=== PATIENT | male | born 1955 | race Caucasian/White ===

== ENCOUNTER 2017-02-04 12:39 | Outpatient (CLI) | payer BC, OTHER ==
--- NOTE | 2017-02-04 17:20 | ULT ---
SCROTAL ULTRASOUND INCLUDING COLOR AND SPECTRAL DOPPLER IMAGIN02/04/17 HISTORY: Left scrotal/testicular pain in a 61-year-old male. Right testis measures 4.3 x 4.3 x 2.3 cm. The left testis measures 4.8 x 3.5 x 2.8 cm. There is a 0.3 cm diameter hypoechoic focus in the left epididymis probably a small complex epididymal cyst. Very s mall spermatocele. No intratesticular mass. Vascular flow is documented to both testis. No evidence f or testicular torsion. IMPRESSION: Possible small complex left epididymal cyst. No intratesticular mass, testicular torsion, hydrocele, or other acute process. POS: [facility]
== END 2017-02-04 12:40 | disposition home or self-care (01) ==
LOC: ULT 12:39
PROVIDERS: ATTEND Urology
DX: N50.819 Testicular pain, unspecified (principal)
CPT/HCPCS: 76870; 93976

== ENCOUNTER 2017-08-26 10:00 | Outpatient (CLI) | payer BC, OTHER ==
[2017-08-26 11:43] LABS: Hemoglobin 14.7 g/dL (14.0-18.0); Mean Corpuscular HGB CONC 32.5 g/dL (32.0-36.0); Mean Corpuscular Volume 89.1 fL (78.0-98.0); Mean Platelet Volume 9.6 fL (7.4-10.4); Platelet Count 175 thou/uL (130-400); Red Blood Cell (RBC) Count 5.07 mill/uL (4.70-6.10); White Blood Cell (WBC) Count 6.8 thou/uL (4.8-10.8)
[2017-08-26 12:01] LABS: ALT (SGPT) 39 U/L (8-55); AST (SGOT) 29 U/L (5-34); Albumin 4.4 g/dL (3.5-5.0); Alkaline Phosphatase 78 U/L (40-150); Anion Gap 13 mmol/L (10-20); BUN (Urea Nitrogen) 20 mg/dL (8.4-25.7); Bilirubin, Total 0.5 mg/dL (0.2-1.2); Calc. Creatinine Clearance 0 mL/min (70-130); Calcium 9.3 mg/dL (7.8-10.44); Carbon Dioxide 24 mmol/L (22-29); Chloride 106 mmol/L (98-107); Estimated GFR-MDRD Greater than 90; Globulin 2.6 g/dL (2.4-3.5); Glucose 112 mg/dL (70-105); Sodium 139 mmol/L (136-145)
[2017-08-26 12:02] LABS: PTT 25.5 SEC (22.9-36.1); Prothrombin Time 12.8 SEC (12.0-14.7)
== END 2017-08-26 10:01 | disposition home or self-care (01) ==
LOC: LABBT 10:00
PROVIDERS: ATTEND Internal Medicine Cardiovascular Disease
DX: Z01.818 Encounter for other preprocedural examination (principal); R94.39 Abnormal result of other cardiovascular function study
CPT/HCPCS: 80053; 85027; 85610; 85730; 93005; 93010

== ENCOUNTER 2017-08-28 10:46 | Observation (INO) | payer BC, OTHER ==
[2017-08-28 11:05] LABS: #Eosinphils 0.2 thou/uL (0.0-0.7); #Lymphocytes 1.6 thou/uL (1.20-3.40); #Monocytes 0.4 thou/uL (0.11-0.59); %Basophils 0.3 % (0.0-1.0); %Eosinophils 2.5 % (0.0-10.0); %Lymphocytes 26.3 % (21.0-51.0); %Monocytes 6.4 % (0.0-10.0); %Neutrophils 64.5 % (42.0-75.0); Hemoglobin 14.8 g/dL (14.0-18.0); Mean Corpuscular HGB CONC 34.4 g/dL (32.0-36.0); Mean Corpuscular Hemoglobin 30.7 pg (27.0-31.0); Mean Corpuscular Volume 89.1 fL (78.0-98.0); Mean Platelet Volume 9.2 fL (7.4-10.4); Platelet Count 164 thou/uL (130-400); Red Blood Cell (RBC) Count 4.81 mill/uL (4.70-6.10); White Blood Cell (WBC) Count 6.1 thou/uL (4.8-10.8)
[2017-08-28 11:26] LABS: ALT (SGPT) 34 U/L (8-55); AST (SGOT) 26 U/L (5-34); Albumin 4.3 g/dL (3.5-5.0); Alkaline Phosphatase 77 U/L (40-150); Anion Gap 13 mmol/L (10-20); BUN (Urea Nitrogen) 17 mg/dL (8.4-25.7); Bilirubin, Total 0.5 mg/dL (0.2-1.2); CK (CPK) 163 U/L (30-200); Calc. Creatinine Clearance 0 mL/min (70-130); Calcium 9.4 mg/dL (7.8-10.44); Carbon Dioxide 24 mmol/L (22-29); Chloride 106 mmol/L (98-107); Estimated GFR-MDRD Greater than 90; Globulin 2.7 g/dL (2.4-3.5); Glucose 195 mg/dL (70-105); Potassium 4.3 mmol/L (3.5-5.1); Sodium 139 mmol/L (136-145)
[2017-08-28 11:30] LABS: CKMB 2.2 ng/mL (0-6.6); Troponin I Less than 0.010 ng/mL (< 0.028)
--- NOTE | 2017-08-28 11:46 | RAD ---
FRONTAL VIEW CHEST: COMPARISON: 10/24/16. INDICATION: Chest pain. FINDINGS: Cardiac silhouette is enlarged. There is no lobar consolidation, effusion, or pneumothorax. Osseous degenerative change is present. There is extrinsic limiting visualization. IMPRESSION: 1. Prominent cardiac silhouette. Correlate clinically. 2. No lobar consolidation. POS: [facility]
[2017-08-28] MEDS ORDERED: Enoxaparin Sodium 80 MG/0.8 ML SYRINGE ONE (12:40)
[2017-08-28] MEDS ORDERED: Enoxaparin Sodium 40 MG/0.4 ML SYRINGE ONE (12:40)
--- NOTE | 2017-08-28 13:29 | HP ---
PRIMARY CARE PHYSICIAN: Dr. Abe rodrigues. PRIMARY COMMUNICATIONS PLANNER: Dr. Mitchell. REASON FOR ADMISSION: Chest pain. HISTORY OF PRESENT ILLNESS: A 62-year-old male who has diabetes mellitus type 2, dyslipidemia, parox ysmal atrial fibrillation who presented to emergency room for evaluation of chest pain. Patient repo rts that for last 2-3 weeks, he is experiencing substernal chest discomfort on the surface. He denie s any deep chest pain. He describes as a dull pain. There is no specific aggravating or relieving f actor. The patient took Aleve, but that did not significantly reduce his pain. The patient also too k full aspirin which did not reduce his pain. He denies any acid reflux. He denies any pleurisy. H e denies any relation of chest discomfort with food, respiration or activity. Patient saw primary ca rdiologist, Dr. Mitchell and as this patient was having recurrent symptoms that is why patient was schedu led as an outpatient basis stress test which was done last Tuesday and it was abnormal and that is why patient is planned for cardiac catheterization on coming Tuesday. Patient's symptoms started again this morning and that is why patient's advised him to go to the ER for evaluation. In the emergency room, his routine evaluation with echocardiogram, blood test, c hest x-ray was unremarkable. Patient is being admitted to observation for rule out ACS. Patient's reports that she noticed that intermittently he was having diaphoresis around the neck area without any associated chest pain. REVIEW OF SYSTEMS: The following complete review of systems was negative, unless otherwise mentioned in the HPI or below: Constitutional: Weight loss or gain, ability to conduct usual activities. Sk in: Rash, itching. Eyes: Double vision, pain. ENT/Mouth: Nose bleeding, neck stiffness, pain, te nderness. Cardiovascular: Palpitations, dyspnea on exertion, orthopnea. Respiratory: Shortness of breath, wheezing, cough, hemoptysis, fever or night sweats. Gastrointestinal: Poor appetite, abdom inal pain, heartburn, nausea, vomiting, constipation, or diarrhea. Genitourinary: Urgency, frequenc y, dysuria, nocturia. Musculoskeletal: Pain, swelling. Neurologic/Psychiatric: Anxiety, depressio n. Allergy/Immunologic: Skin rash, bleeding tendency. Please see my HPI for pertinent positive and negative. All other review of systems reviewed and negative except as mentioned in the HPI. PAST MEDICAL HISTORY: Nephrolithiasis, diabetes type 2, paroxysmal atrial fibrillation, dyslipidemia . PAST SURGICAL HISTORY: Lithotripsy, tonsillectomy, ureteral stent placement. PAST PSYCHIATRIC HISTORY: Anxiety. SOCIAL HISTORY: Patient is . He drinks alcohol occasionally. He denies any smoking. He den ies any other illicit drug abuse. FAMILY HISTORY: Unable to relate because patient is adopted and that is why he does not know any fam janis history. ALLERGIES: SULFA DRUGS. CURRENT HOME MEDICATIONS: Metformin 1000 mg twice daily, flecainide 100 mg twice daily, metoprolol 5 0 mg daily, pravastatin 40 mg p.o. daily, aspirin 81 mg p.o. daily. EMERGENCY ROOM COURSE: Patient is given Lovenox 120 mg subQ one time dose. PHYSICAL EXAMINATION: VITAL SIGNS: On arrival, blood pressure 116/77, pulse 82, respiratory rate 18, temperature 98.4, sat uration 94% on room air, weight 120.2 kilograms. GENERAL: Patient is currently alert, awake, no obvious acute distress. HEENT: Head: Normocephalic, atraumatic. Eyes: Pupils are round, reactive to light. Extraocular m uscles are intact. ENT: Oropharynx within normal limits. Moist mucous membranes. No oral lesion, no pharyngeal erythema, no exudate. NECK: Supple, no JVD, no thyromegaly, no carotid bruit. LUNGS: Clear to auscultation without any rhonchi or rales. CARDIAC: S1, S2 regular. No murmur, no gallop, no rub. ABDOMEN: Soft, bowel sounds present, obesity present. No peritoneal sign, no guarding, no rigidity, no rebound. BACK: Unremarkable, no CVA tenderness. EXTREMITIES: Upper extremity, passive movement of all joints is normal. Lower extremity: No edema. Good peripheral pulsation. SKIN: No skin rash. HEMATOLOGICAL: No lymphadenopathy. PSYCHIATRIC: Normal affect. SIGNIFICANT LABORATORY DATA: EKG showing normal sinus rhythm within normal limits. Chest x-ray base d on my review, no acute cardiopulmonary process. CBC: WBC 6.1, hemoglobin 14.8, platelet 164. BMP : Sodium 139, potassium 4.3, chloride 106, carbon dioxide 24, anion gap 13, BUN 17, creatinine 0.78, glucose 195, calcium 9.4. LFT: AST 26, ALT 34, alkaline phosphatase 77, albumin 4.3. CK 163, CK-M B 2.2, troponin I less than 0.010. BNP 21.6. ASSESSMENT AND PLAN: 1. Acute recurrent chest pain. Patient's chest pain description is atypical. Doubt this patient [place] s any associated coronary artery disease, but he had abnormal stress test as an outpatient basis and the patient is planned for cardiac catheterization on coming Tuesday. As this patient has had anot her episode of chest pain, we will keep him in the hospital for observation and will keep him n.p.o. after midnight and Cardiology will be consulted for cardiac catheterization tomorrow. We will check lipid profile for risk stratification. We will monitor on telemetry floor and meanwhile, we will con tinue the aspirin 325 mg p.o. daily, nitroglycerin on p.r.n. basis. 2. Diabetes type 2. We will continue insulin as per sliding scale protocol. As patient is planned for cardiac catheterization tomorrow, we will hold on metformin therapy after cardiac catheterization . 3. Paroxysmal atrial fibrillation. We will continue flecainide 100 mg twice daily, metoprolol 50 mg p.o. daily. 4. Dyslipidemia. Check lipid profile tomorrow and continue pravastatin 40 mg p.o. at bedtime. 5. Deep venous thrombosis prophylaxis not needed because we are expecting discharge in 24 hours. 6. Gastrointestinal prophylaxis, Pepcid 20 mg p.o. b.i.d. 7. Code status: The patient is FULL CODE. Patient's is surrogate decision maker. 8. Obesity. Dietary education given, weight loss education given. Healthy lifestyle measures discu ssed with the patient.
[2017-08-28 13:46] LABS: Troponin I Less than 0.010 ng/mL (< 0.028)
[2017-08-28 13:56] VITALS: BMI 35.2
[2017-08-28] MEDS ORDERED: Diabetic Tussin 200 MG/10 ML UDCUP PO PRN (13:57)
[2017-08-28] MEDS ORDERED: Ondansetron HCl/PF 4 MG/2 ML Vial IVP PRN (13:57)
[2017-08-28] MEDS ORDERED: Zolpidem Tartrate 5 MG TAB PO PRN (13:57)
[2017-08-28] MEDS ORDERED: Acetaminophen 325 MG TAB PO PRN (13:57)
[2017-08-28] MEDS ORDERED: Chloraseptic Spray 180 ml Bottle PO PRN (13:57)
[2017-08-28] MEDS ORDERED: Artificial Tear Sol 15 ML BOT EA EYE PRN (13:57)
[2017-08-28] MEDS ORDERED: hydrALAZINE 20 MG/ML VIAL SLOW IVP PRN (13:57)
[2017-08-28] MEDS ORDERED: Sodium Chloride 0.65% Nasal 44 ML BOT EA NARE PRN (13:57)
[2017-08-28] MEDS ORDERED: Senokot 8.6 MG TAB PO PRN (13:57)
[2017-08-28] MEDS ORDERED: Ondansetron ODT 4 MG TAB PO PRN (13:57)
[2017-08-28] MEDS ORDERED: Nitroglycerin 0.4 MG TAB (25 Tab Bottle) PO PRN (13:57)
[2017-08-28] MEDS ORDERED: Dextrose 50% Abboject 50 ML SYRINGE SLOW IVP PRN (13:57)
[2017-08-28] MEDS ORDERED: Mag-Al 1200 mg/1200 mg/30 ML UDCUP PO PRN (13:57)
[2017-08-28] MEDS ORDERED: Dextrose 5% in Water 1,000 ML IV PRN (13:57)
[2017-08-28] MEDS ORDERED: Eucerin (Mineral Oil/Petrolatum,White) 30 gm Jar TOP PRN (13:57)
[2017-08-28] MEDS ORDERED: Loperamide HCl 2 MG CAP PO PRN (13:57)
[2017-08-28] MEDS ORDERED: Milk Of Magnesia 30 ML UDCUP PO PRN (13:57)
[2017-08-28] MEDS ORDERED: HumaLOG 300 UNITS/3 ML VIAL SC PRN ×2 (13:57)
[2017-08-28] MEDS ORDERED: Loratadine 10 MG TAB PO PRN (13:57)
[2017-08-28] MEDS ORDERED: HYDROcodone/Acetaminophen 5/325 mg Tablet PO PRN (13:57)
[2017-08-28 17:51] LABS: Troponin I Less than 0.010 ng/mL (< 0.028)
[2017-08-28] MEDS: metFORMIN 500 MG TAB PO SCH (18:00)
[2017-08-28] MEDS ORDERED: Communication Order-Pharmacy FS SCH (18:15)
[2017-08-28] MEDS ORDERED: Atorvastatin Calcium 10 MG TAB PO SCH (21:00)
[2017-08-28] MEDS: Famotidine 20 MG TAB PO SCH (21:37)
[2017-08-28] MEDS: Flecainide 50 MG TAB PO SCH (21:37)
--- NOTE | 2017-08-28 22:32 | CON ---
DATE OF CONSULTATION: 08/28/2017 REASON FOR CONSULTATION: Unstable angina. HISTORY OF PRESENT ILLNESS: Mr. Abe Gibbs is a 62-year-old gentleman, patient of Dr. Ivan Mitchell. The patient recently was evaluated for chest discomfort and was found to have abnormal stress test wi th inferior ischemia on stress testing. The patient had been scheduled for cardiac catheterization t o be done this Tuesday, but had recurrent substernal chest pain at rest today. He came here to the emergency room. His discomfort was relieved with medication and he was admitted for further evaluat ion and proceeding to cardiac catheterization in view of the unstable symptoms. PAST MEDICAL HISTORY: 1. Also, he has got a history of paroxysmal atrial fibrillation. 2. Essential hypertension. 3. Sleep apnea. 4. Mixed hyperlipidemia. 5. Type 2 diabetes. MEDICATIONS: 1. Flecainide. 2. Metoprolol. 3. Metformin. 4. Aspirin. 5. Pravastatin. 6. Nitroglycerin. REVIEW OF SYSTEMS: Constitutional: No significant weight gain or loss. Vision: No changes. Heari ng: No changes. Pulmonary: No cough or wheezing. Gastrointestinal: No nausea, vomiting, diarrhea . Skin: No rashes. Neurologic: No unilateral weakness or numbness. Psychiatric: No unusual depr ession or anxiety. ALLERGIES: SULFA. PHYSICAL EXAMINATION: GENERAL: This is a pleasant 62-year-old man in no distress. VITAL SIGNS: Blood pressure 124/76, pulse 80. HEENT: Eyes, sclerae nonicteric. Mouth, mucous membranes moist. NECK: Supple. No lymphadenopathy. LUNGS: Clear. No wheezing, rales, or rhonchi. CARDIAC: Normal S1, normal S2. There is no murmur, rub, or gallop. ABDOMEN: Obese, nontender. No hepatosplenomegaly. EXTREMITIES: Warm and dry. No clubbing, cyanosis, or edema. HEMATOLOGIC: No unusual bruising. PSYCHIATRIC: Mood and affect are normal. NEUROLOGIC: Grossly normal. SKIN: Warm and dry. Peripheral pulses are strong, dorsalis pedis and posterior tibial pulses. LABORATORY AND X-RAY FINDINGS: EKG, normal sinus rhythm, low voltage, and no acute changes. Cardiac enzymes were negative. ASSESSMENT: 1. Hypertension. 2. Paroxysmal atrial fibrillation. 3. Unstable angina. 4. Hypercholesterolemia, on medicines. 5. Type 2 diabetes mellitus. PLAN: He was given a dose of Lovenox. He did have some blood-tinged urine, therefore, we will not g giuliana any further Lovenox. Proceed to cardiac catheterization tomorrow. Discussed risks of stroke, he art attack, iodine allergy, loss of blood supply to the leg or kidney, stent thrombosis, stent resten osis. The patient understands and wishes to proceed.
[2017-08-29 04:45] LABS: Cardiac Risk 5.4 (Less than 4.5); Cholesterol 168 mg/dl (< 200 Desired); HDL Cholesterol 31 mg/dL (>60 Neg Risk); Triglycerides 673 mg/dL (Less than 150)
[2017-08-29] MEDS ORDERED: Diazepam 5 MG TAB PO SCH (06:00)
[2017-08-29] MEDS: Famotidine 20 MG TAB PO SCH (06:00)
[2017-08-29] MEDS: Sodium Chloride 0.9% 1,000 ML IV SCH ×2 (06:00→16:11)
[2017-08-29] MEDS: Flecainide 50 MG TAB PO SCH (06:01)
[2017-08-29 06:48] LABS: Bilirubin Negative (Negative); Blood, Urine Negative (Negative); Glucose, Urine (Dipstick) Negative (Negative); Leukocyte Negative (Negative); Nitrite Negative (Negative); Protein, Urine (Dipstick) Negative (Neg-Trace); Specific Gravity, Urine 1.025 (1.005-1.030)
[2017-08-29 06:49] LABS: Clarity Clear (Clear)
[2017-08-29 06:54] LABS: RBC/HPF None Seen HPF (0-3); Squamous Epithelial 0-3 HPF (0-3); WBC/HPF 0-3 HPF (0-3)
[2017-08-29] MEDS: metFORMIN 500 MG TAB PO SCH ×2 (07:14→16:48)
[2017-08-29] MEDS ORDERED: Aspirin 325 MG TAB PO SCH (09:00)
--- NOTE | 2017-08-29 10:57 | PDOC.PN ---
- Subjective Encounter Start Date: 08/29/17 Encounter Start Time: 07:40 -: old records requested/rev Patient seen and examined. No new complaints. No overnight events - Objective Resuscitation Status: Resuscitation Status FULL:Full Resuscitation MAR Reviewed: Yes Vital Signs & Weight: Vital Signs (12 hours) Temp Pulse Resp BP BP Pulse Ox 08/29/17 07:37 97.7 F 75 18 08/29/17 07:23 97.8 F 67 18 123/78 93 L 08/29/17 04:05 75 18 114/67 95 08/28/17 23:08 97.7 F 74 18 119/68 95 Weight Weight 267 lb 3.2 oz I&O: 08/28/17 08/29/17 08/30/17 06:59 06:59 06:59 Intake Total 240 Output Total 1150 Balance -910 Result Diagrams: 08/28/17 11:01 08/28/17 11:01 Additional Labs: Accuchecks 08/29/17 08/29/17 08/28/17 10:30 06:02 20:48 POC Glucose 131 H 134 H 165 H 08/28/17 08/28/17 16:43 13:37 POC Glucose 163 H 114 H EKG Reviewed by me: Yes (nsr) Phys Exam - Physical Examination Constitutional: NAD HEENT: PERRLA, moist MMs, sclera anicteric Neck: no JVD, supple Respiratory: no wheezing, no rales, no rhonchi Cardiovascular: RRR, no significant murmur, no rub Gastrointestinal: soft, non-tender, no distention, positive bowel sounds Musculoskeletal: no edema, pulses present Neurological: non-focal, normal sensation, moves all 4 limbs Psychiatric: normal affect, A&O x 3 Skin: no rash, normal turgor Dx/Plan (1) Chest pain Code(s): R07.9 - CHEST PAIN, UNSPECIFIED Status: Acute (2) Abnormal stress test Status: Acute Comment: done at cardiology office recently (3) CAD (coronary artery disease) Code(s): I25.10 - ATHSCL HEART DISEASE OF [place] CORONARY ARTERY W/O ANG PCTRS Status: Chronic (4) DM2 (diabetes mellitus, type 2) Status: Chronic (5) Dyslipidemia Code(s): E78.5 - HYPERLIPIDEMIA, UNSPECIFIED Status: Chronic (6) Obesity (BMI 30-39.9) Code(s): E66.9 - OBESITY, UNSPECIFIED Status: Chronic (7) PAF (paroxysmal atrial fibrillation) Code(s): I48.0 - PAROXYSMAL ATRIAL FIBRILLATION Status: Chronic - Plan cont current plan of care, plan discussed w/ family * will add tricor for hyper TG * today cardiac cath * if cardiac cath negative, will dc to home. * medication reviewed as below * symptomatic treatment * discussed with family bedside Review of Systems - Review of Systems Eyes: negative: Pain, Vision Change, Conjunctivae Inflammation, Eyelid Inflammation, Redness, Other ENT: negative: Ear Pain, Ear Discharge, Nose Pain, Nose Discharge, Nose Congestion, Mouth Pain, Mouth Swelling, Throat Pain, Throat Swelling, Other Respiratory: negative: Cough, Dry, Shortness of Breath, Hemoptysis, SOB with Excertion, Pleuritic Pain, Sputum, Wheezing Cardiovascular: negative: chest pain, palpitations, orthopnea, paroxysmal nocturnal dyspnea, edema, light headedness, other Gastrointestinal: negative: Nausea, Vomiting, Abdominal Pain, Diarrhea, Constipation, Melena, Hematochezia, Other Genitourinary: negative: Dysuria, Frequency, Incontinence, Hematuria, Retention , Other Musculoskeletal: negative: Neck Pain, Shoulder Pain, Arm Pain, Back Pain, Hand Pain, Leg Pain, Foot Pain, Other Skin: negative: Rash, Lesions, Daniel, Bruising, Other - Medications/Allergies Allergies/Adverse Reactions: Allergies Allergy/AdvReac Type Severity Reaction Status Date / Time Sulfa (Sulfonamide Allergy Rash Verified 08/26/17 10:27 Antibiotics) Medications: Current Medications Acetaminophen (Tylenol) 650 mg PO Q4H PRN PRN Reason: Headache/Fever or Pain Hydrocodone Bitart/Acetaminophen ([place] 5/325) 1 tab PO Q4H PRN PRN Reason: Moderate Pain (4-6) Al Hydroxide/Mg Hydroxide (Maalox) 30 ml PO Q6H PRN PRN Reason: Heartburn or Indigestion Artificial Tears (Tears Renewed 15ml Bottle) 0 drop EA EYE PRN PRN PRN Reason: Dry Eyes Aspirin (Aspirin) 325 mg PO DAILY [facility] Last Admin: 08/29/17 06:02 Dose: 325 mg Atorvastatin Calcium (Lipitor) 10 mg PO HS [facility] Last Admin: 08/28/17 21:37 Dose: 10 mg Dextrose/Water (Dextrose 50%) 25 gm SLOW IVP PRN PRN PRN Reason: Hypoglycemia Diazepam (Valium) 5 mg PO ONE [facility] Stop: 08/29/17 23:59 Famotidine (Pepcid) 20 mg PO BID [facility] Last Admin: 08/29/17 06:00 Dose: 20 mg Fenofibrate (Tricor) 145 mg PO DAILY [facility] Flecainide Acetate (Tambocor) 100 mg PO Q12HR [facility] Last Admin: 08/29/17 06:01 Dose: 100 mg Glucagon (Glucagon) 1 mg IM PRN PRN PRN Reason: Hypoglycemia Guaifenesin (Robitussin Sf) 200 mg PO Q4H PRN PRN Reason: Cough Hydralazine HCl (Apresoline) 10 mg SLOW IVP Q4H PRN PRN Reason: Systolic BP > 180 Dextrose/Water (D5w) 1,000 mls @ 0 mls/hr IV .Q0M PRN; As Directed PRN Reason: Hypoglycemia Sodium Chloride (Normal Saline 0.9%) 1,000 mls @ 100 mls/hr IV .Q10H [facility] Last Admin: 08/29/17 06:00 Dose: 1,000 mls Insulin Human Lispro (Humalog) 0 units SC .MODERATE SLIDING SC PRN PRN Reason: Moderate Correctional Scale Insulin Human Lispro (Humalog) 0 units SC .BEDTIME SLIDING SC PRN PRN Reason: Bedtime [place] Scale Loperamide HCl (Imodium) 2 mg PO PRN PRN PRN Reason: Diarrhea/Loose Stools Loratadine (Claritin) 10 mg PO DAILYPRN PRN PRN Reason: Sinus Symptoms Magnesium Hydroxide (Milk Of Magnesium) 30 ml PO DAILYPRN PRN PRN Reason: Constipation Metformin HCl (Glucophage) 1,000 mg PO BID[facility] Last Admin: 08/29/17 07:14 Dose: Not Given Metoprolol Succinate (Toprol Xl) 50 mg PO DAILY [facility] Last Admin: 08/29/17 06:02 Dose: 50 mg Mineral Oil/White Petrolatum (Eucerin Cream) 0 gm TOP BIDPRN PRN PRN Reason: Dry Skin Nitroglycerin (Nitrostat) 0.4 mg PO Q5MIN PRN PRN Reason: Chest Pain Ondansetron HCl (Zofran Odt) 4 mg PO Q6H PRN PRN Reason: Nausea/Vomiting Ondansetron HCl (Zofran) 4 mg IVP Q6H PRN PRN Reason: Nausea/Vomiting Phenol (Chloraseptic [place] 180 Ml Bot) 0 ml PO PRN PRN PRN Reason: Sore Throat Senna (Senokot) 2 tab PO HSPRN PRN PRN Reason: Constipation Sodium Chloride ([place] Nasal [place] 0.65%) 0 ml EA NARE QIDPRN PRN PRN Reason: Nasal Congestion Sodium Chloride (Flush - Normal Saline) 10 ml IVF Q12HR [facility] Sodium Chloride (Flush - Normal Saline) 10 ml IVF PRN PRN PRN Reason: Saline Flush Zolpidem Tartrate (Ambien) 5 mg PO HSPRN PRN PRN Reason: Insomnia
[2017-08-29] MEDS ORDERED: Lidocaine 1% w/Epinephrine 1:100K 30 ML VIAL ONE (12:37)
[2017-08-29] MEDS ORDERED: Lidocaine 1% (PF) 30 ML VIAL ONE (12:38)
[2017-08-29] MEDS ORDERED: Midazolam HCl 2 mg/2 ml Vial ONE (13:25)
[2017-08-29] MEDS ORDERED: traMADol HCl 50 MG TAB PO PRN (13:58)
[2017-08-29] MEDS ORDERED: Acetaminophen/Codeine 30-300mg Tablet PO PRN ×2 (13:58)
[2017-08-29] MEDS ORDERED: Nitroglycerin 0.4 MG TAB (25 Tab Bottle) SL PRN (13:58)
[2017-08-29] MEDS ORDERED: Sodium Chloride 0.9% 200 ML IV SCH (14:00)
--- NOTE | 2017-08-29 15:34 | DIS ---
PRIMARY CARE PHYSICIAN: Abe Duron M.D. DATE OF ADMISSION: 08/28/2017 DATE OF DISCHARGE: 08/29/2017 DISCHARGE DISPOSITION: Home. PRIMARY DISCHARGE DIAGNOSES: Chest pain, ruled out acute coronary syndrome, abnormal stress test, ne gative cardiac catheterization. SECONDARY DISCHARGE DIAGNOSES: Coronary artery disease; diabetes, type 2; dyslipidemia; obesity with BMI 35; paroxysmal atrial fibrillation. PRIMARY PROCEDURE/OPERATION: Cardiac catheterization by Dr. Mitchell. RADIOLOGICAL INVESTIGATION: Chest x-ray normal. SIGNIFICANT LABORATORY DATA: CBC normal. BMP normal. LFT normal. Cardiac enzymes negative. BNP 2 1.6. LDL test not performed. Triglyceride 673. Urinalysis normal. DISCHARGE MEDICATIONS: New medication, Tricor 145 mg p.o. daily. The patient will continue all his previous medication. Patient is advised to hold metformin for 48 hours after cardiac catheterization . Patient will be on following medication eventually, aspirin 81 mg p.o. daily, TriCor 145 mg p.o. d aily, flecainide 100 mg p.o. b.i.d., glipizide 10 mg p.o. b.i.d., metformin 1000 mg p.o. b.i.d., meto prolol XL 50 mg p.o. daily, multivitamin 1 tablet p.o. daily, pravastatin 40 mg p.o. at bedtime. CONTRAINDICATIONS: None. CODE STATUS: FULL CODE. INPATIENT CONSULTANTS: Dr. Shaikh and Dr. Mitchell were consulted while in hospital. TEST RESULTS PENDING ON DISCHARGE: None. ALLERGIES: SULFA DRUGS. DISCHARGE PLAN: Post hospital, the patient will follow up with primary care physician in 1 week. HOSPITAL COURSE: The patient is a 62-year-old male, who presented to emergency room with complaint o f chest pain. The patient was admitted by me yesterday. Please see my HPI for further detail. He w as having substernal chest pain. His chest pain description was atypical. He had abnormal stress te st recently at the Cardiology office. Patient was observed in telemetry floor. We did a Cardiology consultation, and Cardiology did cardiac catheterization, which was normal. The patient remained asy mptomatic while in hospital. His telemetry remained unremarkable. As he has severe hypertriglycerid emia, we decided to add TriCor on his regimen. Rest of medications will be continued as per previous . The patient is seen and examined at bedside today. Please see my progress note from today for furthe r detail. The patient is medically stable for discharge today.
[2017-08-29 16:33] VITALS: BP 125/63; TEMP 97.4
[2017-08-29] MEDS ORDERED: Iopamidol 370 76% 100 ML VIAL ONE (19:20)
[2017-08-30] MEDS ORDERED: Fenofibrate Nanocrystallized 145 MG TAB PO SCH (09:00)
--- NOTE | 2017-09-03 11:46 | EKG ---
Test Reason : Blood Pressure : / mmHG Vent. Rate : 078 BPM Atrial Rate : 078 BPM P-R Int : 170 ms QRS Dur : 092 ms QT Int : 380 ms P-R-T Axes : 058 -50 022 degrees QTc Int : 433 ms Normal sinus rhythm Left axis deviation Low voltage QRS Abnormal ECG Confirmed by WILLIAM OGDEN DO ([id number]), order editor HALLE MCKEON ([id number]) on 09/03/2017 11:46:20 AM Referred By: Confirmed By:WILLIAM OGDEN DO
== END 2017-08-29 18:26 | disposition home or self-care (01) ==
LOC: ERS 10:46 → 2SW 12:31
PROVIDERS: ADMIT Internal Medicine; ATTEND Internal Medicine
PROC: 4A023N7 Measurement of Cardiac Sampling and Pressure, Left Heart, Percutaneous Approach (ICD-10-PCS; principal; 2017-08-29)
PROC: B2111ZZ Fluoroscopy of Multiple Coronary Arteries using Low Osmolar Contrast (ICD-10-PCS; 2017-08-29)
DX: I20.0 Unstable angina (principal); I10 Essential (primary) hypertension; E78.00 Pure hypercholesterolemia, unspecified; E11.9 Type 2 diabetes mellitus without complications; I48.0 Paroxysmal atrial fibrillation; F41.9 Anxiety disorder, unspecified; E78.2 Mixed hyperlipidemia; E66.9 Obesity, unspecified; Z68.35 Body mass index [BMI] 35.0-35.9, adult; Z79.84 Long term (current) use of oral hypoglycemic drugs; Z79.899 Other long term (current) drug therapy; Z88.2 Allergy status to sulfonamides
CPT/HCPCS: 36415; 36416; 71045; 80053; 80061; 81001; 82553; 83880; 84484; 85025; 93005; 93458; 93798; 94760; 96372; 99152; 99153; C1769; G0378; J1644; J1650; J2001; J2250